=== PATIENT | female | born 1965 | race African-American/Black ===

== ENCOUNTER 2017-11-20 11:50 | Emergency (ER) | payer BC, OTHER ==
[~2017-11-20] VITALS: Ht 165.1 cm; Wt 95.3 kg
[2017-11-20] MEDS ORDERED: HYDROCODONE-AP1 EAC6 PO (12:13)
[2017-11-20] MEDS ORDERED: PENICILLIN V P500 MG PO (12:13)
[2017-11-20 12:55] VITALS: BP 167/101
== END 2017-11-20 12:56 | disposition home or self-care (01) ==
LOC: ER 11:50
DX: R22.0 Localized swelling, mass and lump, head (principal); K04.7 Periapical abscess without sinus; J45.909 Unspecified asthma, uncomplicated; I10 Essential (primary) hypertension; F32.9 Major depressive disorder, single episode, unspecified; Z88.8 Allergy status to other drugs, medicaments and biological substances